=== PATIENT | female | born 1980 | race Two or more races ===

== ENCOUNTER 2018-03-01 05:38 | Observation (INO) | payer OTHER ==
[2018-03-01] MEDS ORDERED: LR 1,000 ML IV ONE (06:09)
[2018-03-01] MEDS ORDERED: LIDOCAINE 1% 2 ML INJ ID PRN (06:09)
[2018-03-01] MEDS ORDERED: LIDOCAINE 1% 2 ML INJ ONE (06:12)
[2018-03-01] MEDS ORDERED: BUPIVACAINE/EPI 0.5% 30 ML SDV ONE ×2 (06:23→07:38)
--- NOTE | 2018-03-01 07:02 | PDANEPAE ---
ANE History of Present Illness 37 year old with endometriosis ANE Past Medical History - Cardiovascular History Hx Hypertension: No Hx Arrhythmias: No Hx Chest Pain: No Hx Coronary Artery / Peripheral Vascular Disease: No Hx CHF / Valvular Disease: No Hx Palpitations: No - Pulmonary History Hx COPD: No Hx Asthma/Reactive Airway Disease: Yes Hx Recent Upper Respiratory Infection: No Hx Oxygen in Use at Home: No Hx Sleep Apnea: No Sleep Apnea Screening Result - Last Documented: Negative Pulmonary History Comment: endometriosis is in diaghram which is causing SOB, now kulwinder will remove from underside of diaram. asthma- instructed pt to bring inhaler - Neurologic History Hx Cerebrovascular Accident: No Hx Seizures: No Hx Dementia: No - Endocrine History Hx Diabetes: No - Renal History Hx Renal Disorders: No - Liver History Hx Hepatic Disorders: Yes Hepatic History Comment: liver laceration- 12/29/17 was hospitalized at [facility] - Neurological & Psychiatric Hx Hx Neurological and Psychiatric Disorders: No - Cancer History Hx Cancer: No - Congenital Disorder History Hx Congenital Disorders: No - GI History Hx Gastrointestinal Disorders: No - Other Health History Other Health History: wears glasses/ contacts. blood clot in pelvis, was on xarelto being followed by roller operator- off xarelto currently - Chronic Pain History Chronic Pain: Yes (endometriosis) - Surgical History Prior Surgeries: 12/22/17 VATS procedure at [facility]. 07/03 hysterectomy and endometriosis exc at [facility] with Kulwinder. mar 2010 endometriosis excision ANE Review of Systems Review of systems is: negative Review of Systems: - Exercise capacity METS (RN): 4 METS ANE Patient History - Allergies Allergies/Adverse Reactions: acetaminophen [From Percocet] Allergy (Verified 02/01/18 11:05) Rash oxycodone [From Percocet] Allergy (Verified 02/01/18 11:05) Rash - Home Medications Home Medications: Albuterol [Proventil Inhaler HFA (*)] 1 - 2 puffs IH DAILY PRN 01/26/18 [Last Taken Unknown] Bupropion HCl [Forfivo Xl] 450 mg PO DAILY 01/26/18 [Last Taken 1 Day Ago ~02/28] Rivaroxaban [Xarelto 10mg (*)] 10 mg PO DAILY 01/26/18 [Last Taken 02/08/18] Topiramate [Topamax 100MG (*)] 100 mg PO BID 01/26/18 [Last Taken 1 Day Ago ~] - NPO status NPO Since - Liquids (Date): 02/28/18 NPO Since - Liquids (Time): 22:30 NPO Since - Solids (Date): 02/28/18 NPO Since - Solids (Time): 18:00 - Smoking Hx Smoking Status: Never smoked - Family Anes Hx Family Hx Anesthesia Complications: none ANE Labs/Vital Signs - Vital Signs Blood Pressure: 126/79 Heart Rate: 98 Respiratory Rate: 16 O2 Sat (%): 95 Height: 175.26 cm Weight: 104.326 kg ANE Physical Exam - Airway Neck exam: FROM Mallampati Score: Class 1 Mouth exam: normal dental/mouth exam - Pulmonary Pulmonary: no respiratory distress - Cardiovascular Cardiovascular: regular rate and rhythym - ASA Status ASA Status: II ANE Anesthesia Plan Anesthesia Plan: general endotracheal anesthesia
[2018-03-01] MEDS ORDERED: MIDAZOLAM 2 MG/2 ML VIAL IVP ONE (07:04)
[2018-03-01] MEDS ORDERED: SCOPOLAMINE HYDROBROMIDE 1 MG/3 DAYS PATCH TD ONE (07:08)
[2018-03-01] MEDS ORDERED: CEFAZOLIN 2 GM/DEXTROSE/100 ML BAG IV ONE (07:09)
--- NOTE | 2018-03-01 07:12 | PDGENHP ---
History and Physical History and Physical: Assessment and Plan: 1. Endometriosis of pelvic peritoneum Malia has a 11 cm left adnexal endometrioma with likely frozen pelvis given her prior laparoscopic findings without treatment. We reviewed all conservative and surgical options. Fertility is not an issue given her prior and planned adoptions. She is extremely tired of all the pain. She has failed medical management. At the end of our discussion she is interested in surgical removal. This likely will be a robotic assisted hysterectomy, BSO, and excision of extensive endometriosis throughout the pelvis including the rectum. I would like her to obtain an MRI to look for any invasive disease through the rectum given her prior laparoscopic findings. 2. Dysmenorrhea 3. Dyschezia 4. Menorrhagia with regular cycle Subjective: Patient ID: Malia De La Rosa is a 37 y.o. female who presents to [facility] for endometriosis. HPI Malia robotic hysterectomy and excision of stage IV endometriosis without complication. She had multiple lesions on both angelo-diaphragms which appeared to be full thickness. She presents today without complaints. She states she feels significantly better within the pelvis and abdomen. She continues to have chest discomfort. Malia presents for a preoperative appointment. She has an 11 cm endometrioma, pain from endometriosis, and heavy menses. She underwent a pelvic MRI to look for any bowel involvement. None was seen however she was found to have a deep vein thrombus in her pelvis. She has seen Dr. Christiansen of hematology who has started her on Xarelto. Unfortunately her heavy menses have only worsened since starting the blood thinner. 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 He has asked us to move up her surgery given her increased menstrual blood loss. We reviewed all of her issues again today as well as the multiple options to treat each issue. At the end of our discussion she wishes to undergo excision of the very large left ovarian endometrioma, excision of endometriosis, and hysterectomy. She would like me to leave her right ovary in place. She understands there is a risk she will require additional surgery in the future. At the end of our discussion informed consent was obtained. Approximately 1 hour was spent counseling today. Malia is a 37-year-old 0 woman who presents to discuss endometriosis. She has had painful menses since menarche at the age of 13. She was thought to have endometriosis in her early 20s. In 2008 she underwent a laparoscopy by Dr. Dooley who noted severe endometriosis with the rectum adherent to the posterior uterus. She described the left tube and ovary as being encased in scar tissue as well as a obliterated posterior cul-de-sac. She had a 3 cm endometrioma adherent to the posterior uterus with multiple lesions of endometriosis both in the anterior and posterior cul-de-sac. The lesions were fulgurated.. She then was on Femara and norethindrone for about a year. This helped the pain moderately however insurance discontinued coverage for the Femara. She has tried to conceive without any success. They adopted a boy last February and plan to adopt another. She has had almost daily bleeding for the last year and a half. Her cycles are somewhat regular about every 21 days. She will bleed from 7-10 days in duration. 4 or 5 of these days are extremely heavy when she will change a super tampon every 30 minutes. She develops pain and vomiting the day before her menses begin. She has bloating and sharp left lower quadrant pain during her menses. This also will radiate down her right groin. She has dyschezia throughout the entire month and occasionally must manually disimpact. She has urinary urgency and urgency incontinence for the last several months. Fortunately she has no significant dyspareunia. She essentially is unable to get out of bed for several days each cycle. The pain is most intense in the left lower quadrant which she describes as a stabbing pain. She underwent a colonoscopy in 2009 which was reportedly normal. She has seen Dr. Lara at [facility]. It was recommended she undergo in vitro fertilization which they cannot afford. They live in [place]. PastMedicalHistory Past Medical History: Diagnosis Date Endometriosis Mental disorder Anxiety PastSurgicalHistory Past Surgical History: Procedure Laterality Date PELVIC LAPAROSCOPY 2008 CURRENT MEDICATIONS: Current Outpatient Prescriptions Medication Sig buPROPion (WELLBUTRIN XL) 150 mg 24 hr tablet Take 1 tablet by mouth daily for 3 days, then increase to 1 tablet twice daily hydrOXYzine HCL (ATARAX) 50 mg tablet topiramate (TOPAMAX) 100 mg tablet Take 100 mg by mouth. valACYclovir (VALTREX) 500 mg tablet 2 tablets by mouth daily for suppressive therapy; take 1 tablet twice daily for 3 days PRN outbreak No current facility-administered medications for this visit. ALLERGIES: Oxycodone hcl I have reviewed, verified and agree with the past medical, surgical, , family, social and ROS history as documented by the RN today. Objective: Vital Signs: There were no vitals taken for this visit. Physical Exam Gen: This is an alert, well developed woman in no distress. Neuro: She moves all extremities. Psych: She is appropriate, oriented, with normal affect. Neck: No thyroid enlargement, adenopathy, or tenderness. Lungs: Clear to ascultation, no wheezes or rales. Heart: Regular rate and rhythm without obvious murmurs. Abdomen: Soft, non-tender, without guarding, rebound, or masses. Extremities: No edema or cyanosis. Pelvic: Normal external genitalia. Non-gaping introitus, vagina without discharge, adequately estrogenized, no significant prolapse. Cervix without lesions or discharge. Uterus normal sized, mobile, non-tender. Adnexa non- tender without enlargement. She has an anterior soft compressible pelvic mass anterior to the bladder. This is exquisitely tender. She is exquisitely tender throughout the posterior cul-de-sac. The exam is limited by pain. DATA: I have reviewed the pertinent medical records. PELVIC ULTRASOUND Indication: Pelvic pain and history of endometriosis. Findings: The uterus is mid position but difficult to fully visualize the fundus given a large endometrioma. The endometrium is grossly normal. She has a large complex left adnexal mass measuring 11 x 10 x 9 cm. This has a groundglass appearance with more solid component consistent with an endometrioma. The right ovary measures 3.9 x 3.8 cm with a 3.2 cm simple cyst. 11 by Impression: 10 cm complex left adnexal mass consistent with an endometrioma. TIME/COMMUNICATION: I personally spent a total of 60 minutes. Of that 40 minutes was counseling/ coordination of patient's care. See my note above for details. Den Marsh MD Board Certified Female Pelvic Medicine and Reconstructive Surgery Director of Minimally Invasive Gynecologic Surgery, [facility] Surgeon in Minimally Invasive Gynecologic Surgery [facility] Surgeon in Robotic Surgery
--- NOTE | 2018-03-01 07:12 | PDHPUP ---
History & Physical Update H&P update statement: This history and physical update is based on an assessment of the patient which was completed after admission or registration (within 24 hours), but prior to the surgery/procedure. H&P update: H&P reviewed & patient examined, no change in patient's condition since H&P completed
[2018-03-01] MEDS ORDERED: SCOPOLAMINE HYDROBROMIDE 1 MG/3 DAYS PATCH TD SCH (07:15)
[2018-03-01] MEDS ORDERED: KETAMINE 200 MG/20 ML VIAL ONE (07:20)
[2018-03-01] MEDS ORDERED: fentaNYL 100 MCG/2 ML INJ ONE ×2 (07:20→09:22)
[2018-03-01] MEDS ORDERED: PROPOFOL 200 MG/20 ML VIAL ONE (07:21)
[2018-03-01] MEDS ORDERED: NALOXONE HCL 0.4 MG/ML INJ IVP PRN (09:52)
[2018-03-01] MEDS ORDERED: ONDANSETRON 4 MG/2 ML VIAL IVP PRN ×2 (09:52→11:59)
[2018-03-01] MEDS ORDERED: PROMETHAZINE HCL 25 MG/ML INJ IVP PRN ×2 (09:52→11:59)
--- NOTE | 2018-03-01 09:54 | POSTANESTH ---
Post Anesthetic Evaluation Cardiovascular Status: Normal, Stable Respiratory Status: Normal, Stable Level of Consciousness/Mental Status: Can Participate in Eval Pain Control: Adequate, Prn Tx Ordered Nausea/Vomiting Control: Adequate, Prn Tx Ordered Complications Possibly Related to Anesthesia: None Noted
[2018-03-01] MEDS: fentaNYL 100 MCG/2 ML INJ IVP PRN ×4 (09:55→11:00)
--- NOTE | 2018-03-01 09:55 | POSTOPPROG ---
Post Op Note Date of Operation: 03/01/18 Surgeon: Den Marsh Detailer Furniture: Kenyetta Dong Anesthesia: GET(General Endotracheal) Pre-op Diagnosis: Endometriosis Post-op Diagnosis: Same Procedure: Robotic excision of endo pelvix, diaphragm, Rt endometrioma Findings: Endo Inf/Abcess present in the surg proc area at time of surgery?: No EBL: Minimal Complications: None
[2018-03-01] MEDS ORDERED: ALBUTEROL 3 ML DEYVIAL IH PRN (10:13)
[2018-03-01] MEDS ORDERED: HYDROmorphONE/DILAUDID 2 MG/ML INJ IVP PRN ×2 (10:13→11:59)
[2018-03-01] MEDS ORDERED: DIAZEPAM 5 MG/ML 1 ML SYR ONE (10:16)
[2018-03-01] MEDS ORDERED: HYDROmorphONE/DILAUDID 1 MG/ML INJ ONE (10:16)
[2018-03-01] MEDS: DIAZEPAM 5 MG/ML 1 ML SYR IVP PRN ×2 (10:20→11:28)
[2018-03-01] MEDS: HYDROmorphONE/DILAUDID 1 MG/ML INJ IVP PRN ×6 (10:33→23:11)
[2018-03-01] MEDS ORDERED: ceFAZolin 2 GM/DEXTROSE 100 ML IV ONE (10:45)
[2018-03-01] MEDS ORDERED: ALBUTEROL 60 PUFFS/8 GM MDI IH PRN (11:58)
[2018-03-01] MEDS ORDERED: ONDANSETRON DISINTEGRATING 4 MG TAB PO PRN (11:59)
[2018-03-01] MEDS ORDERED: LR 1,000 ML IV SCH (12:00)
[2018-03-01] MEDS: GABAPENTIN 300 MG CAP PO SCH ×2 (15:32→20:55)
[2018-03-01] MEDS: buPROPion XL 150 MG TAB PO SCH (15:32)
[2018-03-01] MEDS: KETOROLAC 30 MG/1 ML SDV IVP SCH ×2 (15:34→22:00)
[2018-03-01] MEDS: SIMETHICONE 80 MG TAB CHEW PO SCH ×3 (15:41→20:55)
[2018-03-01] MEDS: HYDROCODONE/APAP 5/325 TAB PO PRN ×2 (15:42→20:55)
[2018-03-01] MEDS: DOCUSATE SODIUM 100 MG CAP PO SCH (20:55)
[2018-03-01] MEDS: TOPIRAMATE 100 MG TAB PO SCH (20:55)
[2018-03-02] MEDS: HYDROCODONE/APAP 5/325 TAB PO PRN ×3 (03:30→14:30)
[2018-03-02] MEDS: KETOROLAC 30 MG/1 ML SDV IVP SCH ×2 (03:40→09:44)
[2018-03-02] MEDS: SIMETHICONE 80 MG TAB CHEW PO SCH ×2 (08:09→12:43)
[2018-03-02] MEDS: DOCUSATE SODIUM 100 MG CAP PO SCH (08:09)
[2018-03-02] MEDS: TOPIRAMATE 100 MG TAB PO SCH (08:10)
[2018-03-02] MEDS: GABAPENTIN 300 MG CAP PO SCH ×2 (08:10→14:31)
[2018-03-02] MEDS ORDERED: KETOROLAC 30 MG/1 ML SDV IVP ONE (09:30)
--- NOTE | 2018-03-02 10:01 | GOP ---
DATE OF OPERATION: 03/01/2018 SURGEON: Den Marsh MD METAL BASE BLOCKER: Kenyetta Dong CFA. ANESTHESIA: General. PREOPERATIVE DIAGNOSIS: 1. Pelvic endometriosis. 2. Diaphragmatic lesions. 3. Right ovarian endometrioma. 4. Pelvic pain. 5. Chest pain. POSTOPERATIVE DIAGNOSIS: 1. Pelvic endometriosis. 2. Diaphragmatic lesions. 3. Right ovarian endometrioma. 4. Pelvic pain. 5. Chest pain. PROCEDURE PERFORMED: 1. Robotic-assisted laparoscopic excision of endometriosis in posterior cul-de-sac and pelvis. 2. Excision of right ovarian endometrioma. 3. Partial right oophorectomy. 4. Excision of bilateral diaphragm lesions. 5. Excision of rectal lesion. FINDINGS: SPECIMENS: 1. Peritoneum with endometriosis. 2. Right ovarian cyst wall. 3. Rectal lesion. 1. Diaphragmatic lesions. 4. ESTIMATED BLOOD LOSS: Scant. DESCRIPTION OF PROCEDURE: The patient was taken to the operating room. She was identified. General anesthesia was administered and found to be adequate. She was placed in the lithotomy position. Pr epared and draped in normal sterile fashion. A Monge catheter was placed in her bladder. A 1 cm infraumbilical incision was made with a scalpel. The Veress needle with the CO2 gas flowing w as advanced into the peritoneal cavity. The abdomen was insufflated with carbon dioxide gas. The 12 mm trocar followed by the laparoscope were then inserted. The patient was found to have endometrios is on both diaphragms, which were seen under prior surgical procedure. She also has some recurrence of endometriosis in the posterior cul-de-sac. She had a lesion on the rectum. She had the right adn exa adherent to the right pelvic brim with an endometrioma. Two lateral ports were placed on the rig ht, one on the left under direct visualization. She, then, was placed in Trendelenburg position, and the da Dilip robot docked on the left side. The instruments were then brought into the abdominal ca vity under direct visualization. The lesions in the posterior cul-de-sac were completely excised. The lesion on the rectum was excise d. This extended approximately 30% to 40% through the muscularis. The right ovarian endometrioma wa s excised. This required removal of a small portion of the ovarian stroma. Once the entire pelvis w as treated the robot was then undocked. The patient was turned 90 degrees to re-dock the robot for a ccess to the diaphragm. Once this was accomplished the lesions on both diaphragms were completely ex cised. There was no extension through the complete diaphragm into the chest cavity. The robot was t hen undocked. The fascia was closed with 0 Vicryl, skin with 4-0 Monocryl, and surgical adhesive. A nesthesia was reversed, and the patient taken the PACU awake, in stable condition. COMPLICATIONS: None. DISPOSITION: Patient stable to PACU. /[id number]/MODL
[2018-03-02] MEDS ORDERED: RIVAROXABAN 10 MG TAB PO SCH (10:15)
--- NOTE | 2018-03-02 11:21 | GDS ---
DISCHARGE DIAGNOSES: 1. Endometriosis in the pelvis. 2. Right ovarian endometrioma. 3. Diaphragmatic endometriosis. PROCEDURES: 1. Excision of endometriosis in the pelvis. 2. Excision of right ovarian endometrioma. 3. Excision of diaphragm lesions. HISTORY/HOSPITAL COURSE: The patient is a 37-year-old female with a long history of pelvic pain and endometriosis. She had previously undergone excisional surgery. She was noted to have lesions of the diaphragm, which visually appeared to be full thickness. She then was referred to Cardiothoracic Surgery where she underwent a video assisted thoracoscopy, which turned out to not show endometriosis going full thickness through the diaphragm. As a result, she was taken back to the operating room by myself on 03/01/2018, to excise the lesions on the diaphragm and any recurrent disease, including a right ovarian endometrioma. She tolerated the these procedures well. Her postoperative course was uneventful. The morning after surgery, she was ambulating, voiding, and tolerating a general diet. She was discharged home on postoperative day #1 in good condition. Medications, included [place] for pain. She was to restart her Xarelto on the morning of postoperative day #1. She has a followup appointment with me in 2 weeks. /[id number]/MODL MTDD
[2018-03-02] MEDS: buPROPion XL 150 MG TAB PO SCH (11:32)
[2018-03-02 12:03] VITALS: BP 107/60
== END 2018-03-02 15:20 | disposition home or self-care (01) ==
LOC: F3E 05:38 → FOB 12:40
PROVIDERS: ADMIT Obstetrics & Gynecology; ATTEND Obstetrics & Gynecology
PROC: 0DBP4ZZ Excision of Rectum, Percutaneous Endoscopic Approach (ICD-10-PCS; principal; 2018-03-01 07:15)
PROC: 0BBT4ZZ Excision of Diaphragm, Percutaneous Endoscopic Approach (ICD-10-PCS; principal; 2018-03-01 07:15)
PROC: 0UBF4ZZ Excision of Cul-de-sac, Percutaneous Endoscopic Approach (ICD-10-PCS; principal; 2018-03-01 07:15)
PROC: 0UB04ZZ Excision of Right Ovary, Percutaneous Endoscopic Approach (ICD-10-PCS; principal; 2018-03-01 07:15)
PROC: 0DBW4ZZ Excision of Peritoneum, Percutaneous Endoscopic Approach (ICD-10-PCS; principal; 2018-03-01 07:15)
DX: N80.3 Endometriosis of pelvic peritoneum (principal); N80.1 Endometriosis of ovary; N80.8 Other endometriosis
CPT/HCPCS: 58662; 90471; G0378; 86157-90; 86870-90; G0008; J0690; J1170; J1885; J2250; J2704; J3010; J3360